=== PATIENT | female | born 1955 | race Caucasian/White ===

== ENCOUNTER → 2016-12-10 | Outpatient (CLI) | payer MEDICARE | LOC: MRI 09:00 | DX: M54.16 Radiculopathy, lumbar region (principal); M51.36 Other intervertebral disc degeneration, lumbar region; Z98.890 Other specified postprocedural states | CPT/HCPCS: 72158; A9577 ==

== ENCOUNTER → 2021-06-11 | Outpatient (CLI) | payer OTHER | LOC: KOH-I 14:49 | DX: J20.9 Acute bronchitis, unspecified (principal) | CPT/HCPCS: 71046 ==

== ENCOUNTER → 2021-06-23 | Outpatient (CLI) | payer OTHER | LOC: RAD 12:54 | DX: M54.6 Pain in thoracic spine (principal); M47.814 Spondylosis without myelopathy or radiculopathy, thoracic region; M47.816 Spondylosis without myelopathy or radiculopathy, lumbar region; Z88.1 Allergy status to other antibiotic agents | CPT/HCPCS: 72072; 72110 ==

== ENCOUNTER → 2021-07-13 | Outpatient (CLI) | payer OTHER ==
[2021-07-13 14:16] LABS: HEMOGLOBIN 14.7 gm/dl (12.3-15.3); RED BLOOD COUNT 5.1 M/UL (4.00-5.10); WHITE BLOOD COUNT 5.2 K/UL (4.5-11.0)
[2021-07-13 14:31] LABS: BUN/CREATININE RATIO 18 (0-10)
== END ==
LOC: LAB 13:38
PROVIDERS: Nurse Practitioner
DX: U07.1 COVID-19 (principal); J20.9 Acute bronchitis, unspecified; R06.02 Shortness of breath
CPT/HCPCS: 36415; 80053; 85025; 85379; 85652; 86140

== ENCOUNTER → 2021-07-14 | Outpatient (CLI) | payer OTHER | LOC: CT 07-13 11:00 | DX: U07.1 COVID-19 (principal); J20.9 Acute bronchitis, unspecified; J98.01 Acute bronchospasm; R06.02 Shortness of breath; J98.11 Atelectasis | CPT/HCPCS: 71046; Q9967 ==

== ENCOUNTER → 2022-01-19 | Outpatient (CLI) | payer OTHER | LOC: KOH-I 16:44 | DX: M25.562 Pain in left knee (principal) | CPT/HCPCS: 73560 ==

== ENCOUNTER 2022-03-12 16:39 | Emergency (ER) | payer OTHER ==
[2022-03-12 17:49] LABS: HEMOGLOBIN 15.6 gm/dl (12.3-15.3); RED BLOOD COUNT 5.15 M/UL (4.00-5.10); WHITE BLOOD COUNT 5.9 K/UL (4.5-11.0)
[2022-03-12 18:08] LABS: BUN/CREATININE RATIO 20 (0-10)
[2022-03-12] MEDS ORDERED: HYDROCODON-ACE1 EAC4 PO (22:11)
[2022-03-12] MEDS ORDERED: ZOFRAN ODT 4 MG4 MG PO (22:11)
[2022-03-12] MEDS ORDERED: CIPRO250 MG PO (22:13)
== END 2022-03-12 22:22 | disposition home or self-care (01) ==
LOC: ER1 16:39
DX: N13.2 Hydronephrosis with renal and ureteral calculous obstruction (principal); R82.81 Pyuria; E78.5 Hyperlipidemia, unspecified; Z90.710 Acquired absence of both cervix and uterus; Z88.1 Allergy status to other antibiotic agents; Z79.899 Other long term (current) drug therapy
CPT/HCPCS: 80053; 81001; 83690; 85025; 99284